=== PATIENT | female | born 2000 ===

== ENCOUNTER 2023-11-03 20:54 | Emergency (ER) | payer OTHER, SELFPAY ==
--- NOTE | 2023-11-03 21:01 | XRR_ITS ---
PROCEDURE INFORMATION: Exam: XR Chest Exam date and time: 11/03/2023 9:25 PM Age: 23 years old Clinical indication: Shortness of breath; Additional info: Shortness of breath, throat swelling TECHNIQUE: Imaging protocol: Radiologic exam of the chest. Views: 1 view. COMPARISON: CR XR acute abdomen series [id number] 02/27/2018 9:13 AM FINDINGS: Lungs: No focal consolidation. Pleural spaces: No evidence of pneumothorax. No evidence of pleural effusion. Heart/Mediastinum: Cardiomediastinal silhouette is within normal limits. Bones/joints: No evidence of acute osseous abnormality. XR/XR chest 1V portable [id number] IMPRESSION: 1. No acute cardiopulmonary abnormality.
[2023-11-03 21:03] VITALS: BP 124/76; PULSE 106; RESP 16; TEMP 36.6; O2SAT 96; BMI 20.7
--- NOTE | 2023-11-03 21:32 | ED_ITS ---
HPI - URI/Sore Throat General: Chief Complaint: Upper Respiratory Infection Stated Complaint: throat swollen sob Time Seen by Provider: 11/03/23 21:29 History of Present Illness: Patient has had a sore throat for about a week now. She went to her doctor today and was prescribed antibiotics and steroids. She said her doctor told her if it did not get better to come to the emergency room. She states she is feeling worse and she has not minimal to eat or drink anything all day. On exam she does have very swollen tonsils with exudate. She says her strep screen was negative at clinic. She does not have any uvular deviation. No increased work of breathing. No stridor. She says she feels short of breath but she does not appear short of breath on exam. Lungs are clear. Review of Systems Narrative: Constitutional symptoms: Negative except as documented in HPI. Skin symptoms: Negative except as documented in HPI. Eye symptoms: Negative except as documented in HPI. ENMT symptoms: Negative except as documented in HPI. Respiratory symptoms: Negative except as documented in HPI. Cardiovascular symptoms: Negative except as documented in HPI. Gastrointestinal symptoms: Negative except as documented in HPI. Genitourinary symptoms: Negative except as documented in HPI. Musculoskeletal symptoms: Negative except as documented in HPI. Neurologic symptoms: Negative except as documented in HPI. Psychiatric symptoms: Negative except as documented in HPI. Endocrine symptoms: Negative except as documented in HPI. [facility] ED Female Reproductive History: Date of last menstrual period: 11/03/23 Physical Exam Narrative: EXAM NARRATIVE: General: Alert, no acute distress. Skin: warm and dry Head: Normocephalic Neck: Trachea midline Eye: Extraocular movements are intact. Ears, nose, mouth and throat: Tacky oral mucosa, tonsils are very swollen and erythematous with exudate. There is no uvular deviation and no signs of peritonsillar abscess. Respiratory: Respirations are non-labored Musculoskeletal: Normal ROM Neurological: Alert and oriented, No focal neurological deficit observed. Psychiatric: Cooperative, appropriate mood & affect. Course Vital Signs: Vital signs: Vital Signs Temperature 97.9 F 11/03/23 21:03 Pulse Rate 106 H 11/03/23 21:03 Respiratory Rate 16 11/03/23 21:03 Blood Pressure 124/76 11/03/23 21:03 Pulse Oximetry 96 11/03/23 21:03 Oxygen Delivery Me thod Room Air 11/03/23 21:03 MDM - URI/Sore Throat Medical Decision Making Kalina is being sent. She can follow on that later. Assessment and plan: Pharyngitis Dehydration -Normal saline bolus -IV Decadron, IV Toradol and IV Rocephin - Discharged home - Discussed plan with patient. Answered any questions. - Evaluation and treatment of this problem were appropriate in the emergency setting. No radiology studies performed this visit Discharge Plan Discharge Patient Disposition: Home Clinical Impression: Pharyngitis, Dehydration Condition: Stable Discharge Orders: Discharge ED (Routine); Ordered 11/03/23 Ordered By: Florinda Dinero Referrals: Dian Mancini FNP [Primary Care Provider] - Discharge Diet: Advance as tolerated and Clear Liquid Discharge Activity: Increase activity as tolerated Patient Instructions: Pharyngitis (ED) Activity Restrictions/Additional Instructions: Take the antibiotics and steroids that were prescribed by your physician as instructed. Thank you for choosing [facility] for your healthcare needs today. Please realize this is an emergency room and that we are providing you with a medical screening exam and this may not be complete and all inclusive of all the testing and or work up that you may need to determine your ailment or severity of your illness. You have been screened and evaluated and felt safe for discharge. Health conditions do change or evolve sometimes and as such it is important that you follow up with your Primary Doctor to be re checked, 3-5 days is a general good time frame for follow up. You are always welcome to return to the ED for re assessment if your symptoms are worsening or you have new concerns Coding Level of Care Code ED Internet Site [employer]er for Halle Salas
[2023-11-03] MEDS: dexamethasone 10 mg/mL INJ IVP (21:45)
[2023-11-03] MEDS: cefTRIAXone 1,000 MG in sodium chloride 0.9% (plus) 50 ML 100 MG IV (21:45)
[2023-11-03] MEDS: sodium chloride 0.9% 1,000 ML 999 ML IV (21:46)
[2023-11-03] MEDS: ketorolac 30 mg/mL INJ IVP (21:47)
[2023-11-03] MEDS: ondansetron 2 mg/ML SDV 2 mL 4 MG IVP (21:55)
[2023-11-03 22:26] LABS: Monoscreen Negative (Negative)
[2023-11-03 22:45] VITALS: BP 109/76; PULSE 90; RESP 16; O2SAT 99
[2023-11-03 22:49] VITALS: BP 109/76; PULSE 86; RESP 16; O2SAT 99
== END 2023-11-03 22:50 | disposition home or self-care (01) ==
PROVIDERS: Emergency Provider Emergency Medicine; PCP Nurse Practitioner Family
DX: J02.9 Acute pharyngitis, unspecified (principal); E86.0 Dehydration
CPT/HCPCS: 71045; 86308; 96374; 96375; 99284; J0696; J1100; J1885; J2405; J7030